=== PATIENT | female | born 1960 | race Caucasian/White ===

== ENCOUNTER → 2016-12-04 | Outpatient (CLI) | payer BC ==
[~2016-12-04] MED LIST: ATIVAN1 MG PO; NEO-SYNEPHRINE15 ML; NOMEDS; PERCOCET 5/3251 EACH PO; ZOFRAN4 MG PO
--- NOTE | 2016-12-12 17:46 | RADIOLOGY REPORT PS360 ---
DIG MAMM-DX [facility] W/CAD LEFT BREAST ULTRASOUND WITH AXILLA COMPARISON: 01/31/2015, 10/09/2012 INDICATION: Left breast pain ORDERING PHYSICIAN: Jesus Jacobson MD PATIENT AGE: 56 years TECHNIQUE: Standard images are performed along with spot compression views and left breast ultrasound FINDINGS: Average to dense fibroglandular tissue which does decrease the sensitivity of mammography. Right breast: There was some asymmetric density in the medial aspect of the right breast which did appear to compress out as fibroglandular tissue. No malignant mass or malignant appearing microcalcification evident. Left breast: Asymmetric density is present in the central aspect of the left breast which does appear to compress out as fibroglandular tissue having a similar appearance compared to the previous exams. Asymmetric density is noted superior left breast which also appear to compress out as fibroglandular tissue. Left breast ultrasound: No malignant appearing mass or malignant appearing microcalcification is evident. There is an oval area of isoechogenicity at 11:00 at 8 x 3 mm probably related to underlying fibroglandular tissue similar to the previous exam. Axillary nodes are present corresponding to the patient's area of pain. These do not appear pathologically enlarged. IMPRESSION: Benign findings. No evidence of malignancy BI-RADS CATEGORY: 2_Benign RECOMMENDED FOLLOWUP: Screening mammogram November 2017. NEGATIVE MAMMOGRAM AND NEGATIVE ULTRASOUND DOES NOT EXCLUDE THE POSSIBILITY OF MALIGNANCY. ANY PALPABLE NODULE SHOULD BE MANAGED ON A CLINICAL BASIS. (A letter has been sent to the patient regarding results of the study.)
== END ==
LOC: RAD 09:54
DX: Z12.31 Encounter for screening mammogram for malignant neoplasm of breast (principal); N64.9 Disorder of breast, unspecified
CPT/HCPCS: G0204